=== PATIENT | female | born 1985 | race American Indian/Alaskan Native ===

== ENCOUNTER 2017-11-11 06:26 | Day surgery (SDC) | payer BC ==
[~2017-11-11 06:26] MED LIST: NACL 0.9% IR ONE; XYLOCAINE 1%/ EPI 1:100,000 INFILTRATI ONE
[2017-11-11] MEDS ORDERED: XYLOCAINE MPF 2% ONE (06:59)
[2017-11-11] MEDS ORDERED: DIPRIVAN 10 MG/ML IV ONE (06:59)
[2017-11-11] MEDS ORDERED: ZOFRAN ONE (06:59)
[2017-11-11] MEDS ORDERED: DILAUDID ONE (06:59)
[2017-11-11] MEDS ORDERED: DILAUDID IV PRN (07:13)
[2017-11-11] MEDS ORDERED: ZOFRAN IV PRN (07:13)
[2017-11-11] MEDS ORDERED: XYLOCAINE 1%/ EPI 1:100,000 INFILTRATI ONE (07:26)
[2017-11-11] MEDS ORDERED: MARCAINE 0.5% 0 ML INFILTRATI ONE (07:26)
[2017-11-11] MEDS ORDERED: ANTIBIOTIC OINT TP ONE (07:26)
--- NOTE | 2017-11-11 07:59 | Anesthesia Consultation ---
Anesthesia Consult and Med Hx Date of service: 11/11/17 - Airway Anesthetic Teeth Evaluation: Good ROM Head & Neck: Adequate Mental/Hyoid Distance: Adequate Mallampati Class: Class I Intubation Access Assessment: Good - Pulmonary Exam CTA: Yes - Cardiac Exam Cardiac Exam: RRR - Pre-Operative Health Status ASA Pre-Surgery Classification: ASA1 Proposed Anesthetic Plan: General - Pulmonary Hx Smoking: No - Cardiovascular System Hx Hypertension: No - Central Nervous System Hx Neuromuscular Disorder: No Hx Seizures: No CVA: No Hx Back Pain: No Hx Psychiatric Problems: No - Gastrointestinal Hx Ulcer: No Hx Gastroesophageal Reflux Disease: No - Endocrine Hx Renal Disease: No - Hematic Hx Anemia: No Hx Sickle Cell Disease: No - Other Systems Hx Alcohol Use: Yes Hx Substance Use: No Hx Obesity: No - Additional Comments Anesthesia Medical History Comments: No GAC, No FHAC
[2017-11-11] MEDS ORDERED: LACTATED RINGERS 1,000 ML IV SCH (08:00)
[2017-11-11] MEDS ORDERED: ANCEF/STERILE WATER 2 GM/20 ML IV NR (08:00)
[2017-11-11] MEDS ORDERED: VERSED IV NR (08:00)
[2017-11-11] MEDS ORDERED: NACL BACTERIOSTATIC INFILTRATI ONE (08:01)
[2017-11-11 08:06] LABS: Hematocrit 37.9 % (30.3-42.9); Hemoglobin 12.1 gm/dl (10.1-14.3)
[2017-11-11] MEDS ORDERED: DECADRON ONE (08:29)
--- NOTE | 2017-11-11 10:28 | Operative Report ---
PREOPERATIVE DIAGNOSIS: Keloid, right ear. POSTOPERATIVE DIAGNOSIS: Keloid, right ear. PROCEDURE: 1. Excision, benign neoplasm of right ear greater than 4 cm. 2. Adjacent tissue transfer less than 10 square cm. SURGEON: Caryn Guadarrama MD DESCRIPTION OF PROCEDURE: The patient was brought to the operating room and placed on the table in supine position. Following administration of general anesthesia, the right ear was prepped with Betadine solution and draped in the usual sterile manner. A local anesthesia consisting of 1% lidocaine with epinephrine was injected followed by circumferential excision of the mass. Soft tissue was rotated and advanced across the defect and closed in layers using interrupted and running subcuticular 4-0 Monocryl sutures. Mastisol, Steri-Strips, and sterile dressings were applied. The patient tolerated the procedure well and returned to the Recovery Room in stable condition. JOB# [id number] FTW/GERMAIN
[2017-11-11 10:56] VITALS: BP 104/70
--- NOTE | 2017-11-11 13:43 | Anesthesia Day of Surgery ---
Anesthesia Day of Surgery - Day of Surgery Patient Examined: Yes Patient H&P Reviewed: Yes Patient is NPO: Yes
--- NOTE | 2017-11-11 18:14 | Post Anesthesia Evaluation ---
- Post Anesthesia Evaluation Patient Participated: Yes Airway Patent: Yes Stable Respiratory Function: Yes Nausea/Vomiting: No Temp > 96.8F: Yes Pain Manageable: Yes Adequeate Hydration: Yes Anesthesia Complications: No
--- NOTE | 2017-11-11 22:27 | Discharge Summary ---
Short Stay Discharge Plan Activity: fall precautions Weight Bearing Status: Full Weight Bearing Diet: regular Wound: remove dressing (72hrs) Follow up with: PRIMARY CARE, [Primary Care Provider] - 6 Weeks WORK,MICHELLE Rios JR, MD [Staff Physician] - 7 Days Forms: [facility]
--- NOTE | 2017-11-11 22:29 | Short Stay Summary ---
Short Stay Documentation Date of service: 11/11/17 - Allergies and Medications Current Medications: Allergies No Known Allergies Allergy (Verified 11/08/17 10:07) Home Medications Medication Instructions Recorded Confirmed Last Taken Type No Known Home Medications [No 11/08/17 11/08/17 Unknown History Reported Home Medications] - Brief post op/procedure progress note Date of procedure: 11/11/17 Pre-op diagnosis: Keloid of RT Ear Post-op diagnosis: same Procedure: Excision of Benign Neoplasm of RT Ear > 4cm Adj. Tissue Transfer <40cm2 Anesthesia: GETA Surgeon: MICHELLE TURNER JR Estimated blood loss: none Specimen disposition: to lab Condition: stable - Disposition Condition at discharge: Good Disposition: DC- TO HOME OR SELFCARE Short Stay Discharge Plan Follow up with: MICHELLE TURNER JR, MD [Staff Physician] - 7 Days PRIMARY CAREMD [Primary Care Provider] - 6 Weeks Forms: [facility]
== END 2017-11-11 10:50 | disposition home or self-care (01) ==
LOC: OR 06:26
PROVIDERS: ATTEND Plastic Surgery
DX: L91.0 Hypertrophic scar (principal); Z79.899 Other long term (current) drug therapy
CPT/HCPCS: 14060; 36415; 81025; 85014; 85018; 88305; J0690; J1100; J1170; J2250; J2405; J2704; J7120